=== PATIENT | male | born 1945 | race Caucasian/White ===

== ENCOUNTER → 2016-10-26 | Outpatient (CLI) | payer OTHER ==
[~2016-10-26] MED LIST: ASPCH81X PO; ATOR-24 PO; DEXL60CA4 PO; FISHOIL PO; LISI40TA PO; NAPR1TAB9 PO; OMEG10007 PO
[2016-10-26 14:50] LABS: BASO % 0.3 %; BASO ABS # 0.02 K/uL (0-0.2); COMPLETE YES; HEMATOCRIT 41.9 % (42-52); IG% 0.3 %; LYMPH % 39.4 %; LYMPH ABS # 2.35 K/uL (1.2-3.4); MEAN CELL VOLUME 82.2 fL (80-100); MEAN CORPUSCULAR HEMOGLOBIN 27.6 pg (25-34); MEAN CORPUSCULAR HGB CONC 33.7 g/dl (32-36); MONO % 8.9 %; NEUT % 47.1 %; PLATELET COUNT 202 K/uL (130-400); WHITE BLOOD COUNT 5.97 K/uL (4.8-10.8)
[2016-10-26 16:01] LABS: BLOOD UREA NITROGEN 17 mg/dl (7-18); BUN/CREATININE RATIO 17.7 (10-20); CALCIUM 8.8 mg/dl (8.5-10.1); CARBON DIOXIDE 25 mmol/L (21-32); CHLORIDE 103 mmol/L (98-107); CREATININE 0.95 mg/dl (0.60-1.40); GLUCOSE 104 mg/dl (70-99); POTASSIUM 4.2 mmol/L (3.5-5.1); SODIUM 136 mmol/L (136-145)
[2016-10-26 16:08] LABS: ALB/GLOB RATIO 1.4 (0.9-2); ALKALINE PHOSPHATASE 107 U/L (45-117); ALT/SGPT 31 U/L (12-78); AST/SGOT 24 U/L (15-37); CHOLESTEROL 110 mg/dl (0-200); CHOLESTEROL/HDL RATIO 3.3; HDL CHOLESTEROL 33 mg/dl; LDL CHOLESTEROL CALCULATED 54 mg/dl; TRIGLYCERIDES 115 mg/dl (0-150); VERY LOW DENSITY LIPOPROT CALC 23 mg/dl
== END | disposition home or self-care (01) ==
LOC: C.LABSPEC 13:48
PROVIDERS: ATTEND Family Medicine
DX: E78.2 Mixed hyperlipidemia (principal); K21.9 Gastro-esophageal reflux disease without esophagitis; I10 Essential (primary) hypertension

== ENCOUNTER 2016-11-22 11:02 | Emergency (ER) | payer OTHER ==
[~2016-11-22] VITALS: Ht 180.3 cm; Wt 89.9 kg
[~2016-11-22 11:02] MED LIST changes: -DEXL60CA4 PO; -OMEG10007 PO
[2016-11-22 11:11] VITALS: BP 139/89; PULSE 85; TEMP 36.6; O2SAT 98; Ht 180.3 cm; Wt 89.9 kg
[2016-11-22] MEDS ORDERED: PROPARACAINE HCL 0.5% OP SOLN 15 ML BTL OP STA (11:31)
[2016-11-22] MEDS ORDERED: OMEG10007 PO (11:33)
[2016-11-22] MEDS ORDERED: DEXL60CA4 PO (11:49)
--- NOTE | 2016-11-22 11:59 | EMERGENCY ROOM VISIT NOTE ---
ED Visit Note First contact with patient: 11:29 CHIEF COMPLAINT: Eye pain HISTORY OF PRESENT ILLNESS: This 71-year-old male patient presents to the emergency department ambulatory complaining of pain in the left eye which began yesterday. The patient states that he was riding in the car with the windows down and something hit his eye. There has been a constant moderate pain and irritation, redness and tearing in the eye since then. There is a mild blurring of vision at times and light bothers the eye. The vision has not been decreased over all. The patient does not wear contacts. The patient rates the pain as stinging and 5/10. The patient has had previous corneal abrasions to this eye. Tetanus shot is up to date. The patient has a history of cataracts and sees Dr. Flores. REVIEW OF SYSTEMS: A 6 system review of systems was completed with positives and pertinent negatives listed in the HPI. ALLERGIES: Azithromycin MEDICATIONS: See med list PMH: Cataracts, hypertension, hyperlipidemia SOCIAL HISTORY: The patient lives locally with his . Nonsmoker, denies alcohol use. PHYSICAL EXAM: Vital Signs: Reviewed Nurse's notes, vital signs stable. Visual acuity 20/20 left eye, 20/25 right eye. GENERAL: This is a 71-year-old male, in no acute distress, but who is uncomfortable from the eye problem. Well- developed well-nourished. EYES: The pupils are equal round and reactive to light and accommodation. EOMs are full and without tenderness. There is discharge of clear tears from the left eye which is mildly injected. There is no foreign body visible under the eyelid even after lid eversion. Funduscopic exam reveals no hemorrhages, papilledema, or other abnormalities. No foreign body was seen embedded in the cornea under slit lamp exam. The cornea was clear and no hyphema was seen. Fluorescein uptake was observed with ultraviolet light significant for a linear corneal abrasion over the lateral aspect of the left eye. EMERGENCY DEPARTMENT COURSE: I examined the patient. Alcaine 2 drops were placed in the patient's left eye. A slit lamp exam was performed as above. Ciloxan two drops was placed in the patient's left eye. Lid eversion was performed and no foreign body identified. I suspect the patient likely rubbed his eye, causing the linear corneal abrasion. He will follow up with Dr. Flores for a recheck. The patient verbalized understanding of my assessment and treatment plan and was discharged home in good condition. DIAGNOSIS: Corneal abrasion of the left eye Problem List Medical Problems: (1) Arthritis Status: Chronic (2) Back Surgery Status: Resolved (3) Benign hypertension Status: Chronic (4) Bradyarrhythmia Status: Resolved (5) Bradycardia Status: Resolved (6) Chemical conjunctivitis Status: Resolved (7) Chemical keratitis Status: Resolved (8) Dizziness Status: Resolved (9) Gastroesophageal reflux disease Status: Chronic (10) HTN (hypertension) Status: Resolved (11) Hyperglycemia Status: Chronic (12) Lumbar strain Status: Resolved (13) Right elbow pain Status: Resolved (14) Symptomatic bradycardia Status: Resolved Surgical Problems: (1) Cardiac Pacemaker In Situ Status: Chronic (2) Cataract Nos Status: Resolved (3) History of cholecystectomy Status: Resolved (4) History of lumbar fusion Status: Resolved Current/Historical Medications Scheduled Atorvastatin (Lipitor), 40 MG PO DAILY Dexlansoprazole (Dexilant), 60 MG PO QAM Fish Oil ([place]-3), 2 CAP PO DAILY Lisinopril (Zestril), 40 MG PO QAM Naproxen (Aleve), 2 TABS PO DAILY Allergies Coded Allergies: Azithromycin (Unverified Allergy, Intermediate, Rash, 11/22/16) Vital Signs Date Time Temp Pulse Resp B/P Pulse Ox O2 Delivery O2 Flow Rate FiO2 11/22/16 11:11 36.6 85 18 139/89 98 Room Air Departure Information Impression Primary Impression: Corneal abrasion, left Dispostion Home / Self-Care Condition GOOD Referrals Wilberto Kraft M.D. ([place]) (PCP) Mikey Flores MD Patient Instructions My [facility] Additional Instructions You have been treated in the Emergency Department today for your Corneal Abrasion. You have been prescribed Ciloxan eye drops. This is an antibiotic which will help to prevent an infection from developing in your affected eye. You should use 2 drops in the affected eye every 2 hours while awake for the first 2 days, then every 4 hours for the remaining 5 days. This is a total of a 7-day course for these antibiotic eye drops. For pain control, you can use the following [id number] medicines (if >12 yo): - Regular strength (325mg/tab) Tylenol (acetaminophen) 2 tabs every 4-6 hours as needed. Do not exceed 12 tablets in a 24 hour period. Avoid taking more than 4 grams (4000 mg) of Tylenol per day. This includes any other sources of acetaminophen you may take on a regular basis. - Regular strength (200 mg/tab) Advil (ibuprofen) 1-2 tabs every 4-6 hours as needed. Do not exceed a dose of 3200 mg per day. You should relax in a quiet, dark place for the rest of the day. You should wear sunglasses while outside for the next few days until your eyes are not as sensitive to the light. You should schedule a follow-up appointment in 2-3 days with your Primary Care Provider or established Eye Doctor ([employer]) for further evaluation and treatment of your Corneal Abrasion. Return to the Emergency Department if your current symptoms worsen despite treatment course outlined above, or if you develop any of the following symptoms : intractable pain, visual disturbances, loss of vision, increased redness, swelling, drainage, or if you develop a fever. Problem Qualifiers Primary Impression: Corneal abrasion, left Encounter type: initial encounter Qualified Codes: S05.02XA - Injury of conjunctiva and corneal abrasion without foreign body, left eye, initial encounter
[2016-11-22] MEDS ORDERED: CIPROFLOXACIN HCL 0.3% OP SOLN 2.5 ML BTL OP ONE (12:00)
== END 2016-11-22 12:19 | disposition home or self-care (01) ==
LOC: C.EDB 11:05 → C.EDD 12:19
DX: S05.02XA Injury of conjunctiva and corneal abrasion without foreign body, left eye, initial encounter (principal); X58.XXXA Exposure to other specified factors, initial encounter; H26.9 Unspecified cataract; I10 Essential (primary) hypertension; E78.5 Hyperlipidemia, unspecified; R73.9 Hyperglycemia, unspecified

== ENCOUNTER 2017-03-30 20:13 | Emergency (ER) | payer OTHER ==
[~2017-03-30] VITALS: Ht 182.9 cm; Wt 104.5 kg
[~2017-03-30 20:13] MED LIST changes: -ASPCH81X PO; +DEXL60CA4 PO; -FISHOIL PO; +OMEG10007 PO
[2017-03-30 20:24] VITALS: TEMP 36.6; Ht 182.9 cm; Wt 104.5 kg
[2017-03-30] MEDS ORDERED: PROPARACAINE HCL 0.5% OP SOLN 15 ML BTL ONE (21:40)
[2017-03-30] MEDS ORDERED: CIPROFLOXACIN HCL 0.3% OP SOLN 2.5 ML BTL OP STA (21:52)
--- NOTE | 2017-03-30 21:59 | EMERGENCY ROOM VISIT NOTE ---
ED Visit Note First contact with patient: 21:39 The patient was seen and examined with Anitha Anguiano PA-C. I agree with the history, physical and findings. Please see the note for disposition and details.
[2017-03-30 22:01] VITALS: BP 154/76; PULSE 72; O2SAT 100
--- NOTE | 2017-03-31 02:32 | EMERGENCY ROOM VISIT NOTE ---
ED Visit Note First contact with patient: 21:39 CHIEF COMPLAINT: Foreign body of the eye HISTORY OF PRESENT ILLNESS: This 72 yo patient presents to the emergency department with complaining of pain and foreign body sensation in the left eye. Patient is working on the car and thinks he got a piece of metal in his eye. There has been a constant moderate pain and irritation, redness and tearing in the eye. The vision has not been decreased over all. The patient does not wear contacts. The patient rates the pain as 4/10. The patient has had previous injuries to this eye. Tetanus shot is up to date. REVIEW OF SYSTEMS: A 6 system review of systems was completed with positives and pertinent negatives listed in the HPI. ALLERGIES: Zithromax MEDICATIONS: Reviewed PMH: Medical Problems: (1) Arthritis Status: Chronic (2) Back Surgery Status: Resolved (3) Benign hypertension Status: Chronic (4) Bradyarrhythmia Status: Resolved (5) Bradycardia Status: Resolved (6) Chemical conjunctivitis Status: Resolved (7) Chemical keratitis Status: Resolved (8) Dizziness Status: Resolved (9) Gastroesophageal reflux disease Status: Chronic (10) HTN (hypertension) Status: Resolved (11) Hyperglycemia Status: Chronic (12) Lumbar strain Status: Resolved (13) Right elbow pain Status: Resolved (14) Symptomatic bradycardia Status: Resolved Surgical Problems: (1) Cardiac Pacemaker In Situ Status: Chronic (2) Cataract Nos Status: Resolved (3) History of cholecystectomy Status: Resolved (4) History of lumbar fusion Status: Resolved SOCIAL HISTORY: No drug use PHYSICAL EXAM: Vital Signs: Reviewed Nurse's notes, vital signs stable. Visual acuity reviewed from nursing. GENERAL: This is a pleasant male, in no acute distress, but who is uncomfortable from the eye problem. Well-developed well- nourished. EYES: The pupils are equal round and reactive to light and accommodation. EOMs are full and without tenderness. There is clear discharge from the left eye which is injected. There is a piece of metal visible on the cornea. There is no foreign body visible under the eyelid after lid eversion. Small metallic foreign body was seen embedded in the cornea under slit lamp exam. The cornea was clear and no hyphema was seen. Fluorescein uptake was observed with ultraviolet light significant for a corneal abrasion only around the previous location of the foreign body. EMERGENCY DEPARTMENT COURSE: I examined the patient. Alcaine 2 drops were placed in the patient's left eye. A slit lamp exam was performed as above. The small metallic foreign body was removed using a Q-tip. There was no rust ring. Ciloxan two drops was placed in the patient's left eye. The patient was discharged home in good condition. Patient was advised to follow-up with his parasitology teacher in a day or 2 or here in the ER sooner for eye pain, vision films, worsening signs or symptoms or as needed. DIAGNOSIS: Foreign body with subsequent corneal abrasion of the left eye DISCHARGE INSTRUCTIONS AND TREATMENT: As below Problem List Medical Problems: (1) Arthritis Status: Chronic (2) Back Surgery Status: Resolved (3) Benign hypertension Status: Chronic (4) Bradyarrhythmia Status: Resolved (5) Bradycardia Status: Resolved (6) Chemical conjunctivitis Status: Resolved (7) Chemical keratitis Status: Resolved (8) Dizziness Status: Resolved (9) Gastroesophageal reflux disease Status: Chronic (10) HTN (hypertension) Status: Resolved (11) Hyperglycemia Status: Chronic (12) Lumbar strain Status: Resolved (13) Right elbow pain Status: Resolved (14) Symptomatic bradycardia Status: Resolved Surgical Problems: (1) Cardiac Pacemaker In Situ Status: Chronic (2) Cataract Nos Status: Resolved (3) History of cholecystectomy Status: Resolved (4) History of lumbar fusion Status: Resolved Current/Historical Medications Scheduled Atorvastatin (Lipitor), 40 MG PO DAILY Dexlansoprazole (Dexilant), 60 MG PO QAM Fish Oil ([place]-3), 2 CAP PO DAILY Lisinopril (Zestril), 40 MG PO QAM Naproxen (Aleve), 2 TABS PO DAILY Allergies Coded Allergies: Azithromycin (Unverified Allergy, Intermediate, Rash, 03/30/17) Vital Signs Date Time Temp Pulse Resp B/P (MAP) Pulse Ox O2 Delivery O2 Flow Rate FiO2 03/30/17 22:01 72 16 154/76 100 03/30/17 20:24 36.6 76 20 134/76 94 Room Air Medications Administered Medications (Trade) Dose Ordered Sig/Hazel Route Start Time Stop Time Status Last Admin Dose Admin Ciprofloxacin HCl (Ciprofloxacin 0.3% Op Soln) 2 drops NOW STAT OP 03/30/17 21:52 03/30/17 21:54 DC 03/30/17 22:00 2 DROPS Departure Information Impression Primary Impression: Foreign body in cornea, left eye, initial encounter Dispostion Home / Self-Care Condition GOOD Forms WORK / SCHOOL INSTRUCTIONS, HOME CARE DOCUMENTATION FORM, IMPORTANT VISIT INFORMATION Patient Instructions My [facility], ED Foreign Body Cornea Additional Instructions Use Ciloxan two drops in left eye every two hours while awake for two days; then two drops every four hours while awake for 5 days. Use Ibuprofen 600 mg or Tylenol 1000 mg every 6 hours as needed for pain ( Maximum 3000 mg Tylenol in 24 hr period). If you wear contacts, no contacts for 1 week. Follow up with your parasitology teacher in 1-2 days. Call for appointment. Return to the ED for increasing pain or changes in vision.
== END 2017-03-30 22:02 | disposition home or self-care (01) ==
LOC: C.EDB 20:15 → C.EDD 22:02
DX: T15.02XA Foreign body in cornea, left eye, initial encounter (principal); W45.8XXA Other foreign body or object entering through skin, initial encounter; M19.90 Unspecified osteoarthritis, unspecified site; I10 Essential (primary) hypertension; K21.9 Gastro-esophageal reflux disease without esophagitis; R73.9 Hyperglycemia, unspecified; Z95.0 Presence of cardiac pacemaker

== ENCOUNTER → 2017-11-07 | Outpatient (CLI) | payer OTHER ==
[2017-11-07 13:12] LABS: BASO % 0.3 %; BASO ABS # 0.02 K/uL (0-0.2); EOS % 4.3 %; EOS ABS # 0.25 K/uL (0-0.5); HEMATOCRIT 43.8 % (42-52); HEMOGLOBIN 14.7 g/dL (14.0-18.0); IG# 0.01 K/uL (0.00-0.02); LYMPH % 41.3 %; LYMPH ABS # 2.38 K/uL (1.2-3.4); MEAN CELL VOLUME 82.3 fL (80-100); MEAN CORPUSCULAR HEMOGLOBIN 27.6 pg (25-34); MEAN CORPUSCULAR HGB CONC 33.6 g/dl (32-36); MEAN PLATELET VOLUME 10.7 fL (7.4-10.4); MONO % 8.3 %; MONO ABS # 0.48 K/uL (0.11-0.59); NEUT % 45.6 %; NEUT ABS # 2.62 K/uL (1.4-6.5); PLATELET COUNT 216 K/uL (130-400); RED CELL DISTRIBUTION WIDTH CV 13.7 % (11.5-14.5); WHITE BLOOD COUNT 5.76 K/uL (4.8-10.8)
[2017-11-07 14:06] LABS: ALBUMIN 4.2 gm/dl (3.4-5.0); ALT/SGPT 39 U/L (12-78); AST/SGOT 25 U/L (15-37); BLOOD UREA NITROGEN 14 mg/dl (7-18); CALCIUM 8.8 mg/dl (8.5-10.1); CARBON DIOXIDE 26 mmol/L (21-32); CHOLESTEROL 108 mg/dl (0-200); GLUCOSE 114 mg/dl (70-99); POTASSIUM 4.3 mmol/L (3.5-5.1); SODIUM 137 mmol/L (136-145); TOTAL PROTEIN 7.3 gm/dl (6.4-8.2)
[2017-11-07 14:12] LABS: ALKALINE PHOSPHATASE 116 U/L (45-117); LDL CHOLESTEROL CALCULATED 56 mg/dl
== END | disposition home or self-care (01) ==
LOC: C.LABSPEC 12:58
PROVIDERS: ATTEND Family Medicine
DX: I10 Essential (primary) hypertension (principal); E78.2 Mixed hyperlipidemia; K21.9 Gastro-esophageal reflux disease without esophagitis; Z12.5 Encounter for screening for malignant neoplasm of prostate

== ENCOUNTER 2022-07-27 08:07 | Observation (INO) ==
--- NOTE | 2022-06-14 14:58 | PAT Medication Instructions ---
Medication Instructions Date of Service June 14, 2022 Home Medications atorvastatin 40 mg tablet 40 mg PO HS dexlansoprazole 60 mg capsule,biphase delayed release 60 mg PO QAM lisinopril 40 mg tablet 40 mg PO QAM naproxen sodium 220 mg tablet 440 mg PO QAM ASK your surgeon for instructions naproxen sodium 220 mg tablet 440 mg PO QAM DO NOT take the morning of surgery lisinopril 40 mg tablet 40 mg PO QAM Take morning of surgery With a small sip of water, OTHERWISE NOTHING TO EAT OR DRINK AFTER MIDNIGHT: dexlansoprazole 60 mg capsule,biphase delayed release 60 mg PO QAM Take evening before surgery atorvastatin 40 mg tablet 40 mg PO HS Other Notes If you have any questions please call us at [phone] or [phone] or [phone] or [phone]
--- NOTE | 2022-06-18 12:49 | Anesthesiology Consultation ---
Date of Service June 18, 2022 Assessment & Plan (1) Encounter for pre-operative examination: - will attempt to obtain most recent pacer report. PAT testing to be faxed to PCP. - A1c 6.7%, pt not on medication at this time. PCP and surgeon notified. Check BSG am DOS. - Medtronic pacemaker. - EP 05/28/22 [place]: "...Sick sinus syndrome: No additional episodes of dizziness or lightheadedness. Normally functioning dual-chamber permanent pacemaker with approximately 50% atrial pacing. Normal longevity. Paroxysmal atrial tachycardia: He appears to have had this diagnosis in the past. He has not been aware of any palpitations. episodes themselves are very brief. No atrial fibrillation..." Outpatient joint assessment: Patient is currently scheduled for inpatient pathway. If re-evaluated pending system levels during current pandemic/surgeon requests outpatient pathway, patient is not recommended candidate for outpatient joint program from anesthesia standpoint. Chart Review Chart Review: Pending: Refer to Additional Notes / Consult section and Patient seen in Pre Admission Testing Teaching & Discussion Pre-Anesthesia Teaching/Discussion Notes: Instructed NPO after midnight before surgery, except medications with 15 cc of water. Medication instructions provided according to the PAT guidelines. History Surgery Operation Date: 07/27/22 08:25 Proposed Procedures p Right Total Knee Arthroplasty - Danilo Gamboa DO Height/Weight Height: 5 ft 11.5 in Weight: 95.254 kg Allergies Allergy/AdvReac Type Severity Reaction Status Date / Time azithromycin Allergy Rash Verified 06/14/22 08:57 Medications Home Medications Medication Instructions Recorded Confirmed Last Taken atorvastatin 40 mg tablet 40 mg PO HS 04/24/19 06/14/22 Unknown dexlansoprazole 60 mg 60 mg PO QAM 04/24/19 06/14/22 Unknown capsule,biphase delayed release lisinopril 40 mg tablet 40 mg PO QAM 04/24/19 06/14/22 Unknown naproxen sodium 220 mg tablet 440 mg PO QAM 04/24/19 06/14/22 Unknown Past Medical History Medical History (Updated 06/21/22 @ 08:54 by Beverly Chavez PA-C) Cardiac pacemaker 12/24/14, [place], Medtronic, f/u corky joseph Elevated hemoglobin A1c 6.7% on 06/2022 pre-op testing GERD (gastroesophageal reflux disease) controlled, stable per pt History of COVID-19 04/2022, test at PCP office, not hosp; fatigue, body aches>resolved. HTN (hypertension) controlled, stable per pt Hx of fracture "multiple fractures over the years, think I had some surgeries for them" Hyperlipidemia PAT (paroxysmal atrial tachycardia) Sinus node dysfunction Sleep apnea s/p UPPP Symptomatic bradycardia Patient denies h/o stroke, seizures, heart attack, heart failure, DM, blood clots or blood transfusions. Exercise / Class Metabolic Activity II 4-5 Yardwork/Stairs/Walk up hill (denies CP or SOB with 1 FOS) Past Surgical History Surgical History History of back surgery History of esophagogastroduodenoscopy (EGD) History of nasal surgery History of permanent cardiac pacemaker placement History of uvulopalatopharyngoplasty 2003 Hx laparoscopic cholecystectomy Hx of cataract extraction bilat. Hx of colonoscopy Hx of foot surgery for a fx. "long time ago" Hx of inguinal hernia repair Hx of sinus surgery Past Anesthesia History No Hx of Anesthesia Complications and No Family Hx of Anesthesia Complications History of PONV No Hx of PONV and No Hx of Motion Sickness Social History Smoking Status: Never smoker Do You Dip or Chew Tobacco: No Hx Alcohol Use: Yes (hx-none for 40-50 years) Hx Substance Use: Yes substance use type: former substance user, marijuana, crack/cocaine and heroin Last Used Substance Other:: "many years ago" Review of Systems Patient denies chest pain, shortness of breath, dyspnea on exertion, fever, chills, cough, wheezing, or palpitations. Physical Exam Vital Signs Vitals BP 116/76 P 65 TEMP 97.6 SP02 96% on RA RESP 17 Physical Full cervical extension range of motion without pain TMD 3.5 finger breadths Mallampati Score s/p UPPP Dentition: intact, removable upper plate, multiple caps/crowns; denies chipped or loose teeth Lungs: normal respiratory effort. Clear throughout to auscultation, no adventitious breath sounds Cardiac: regular rate and rhythm, no murmurs noted Carotid arteries: negative bruit bilat Lab Results Anesthesia Preop Results Results Anesthesia Widget: WBC 7.19 K/ul (4.8-10.8) 06/18/22 Hgb 14.1 g/dl (14.0-18.0) 06/18/22 Hct 42.8 % (40.1-51.0) 06/18/22 Plt 221 K/uL (130-400) 06/18/22 Na 135 mmol/L (136-145) L 06/18/22 K 5.0 mmol/L (3.5-5.1) 06/18/22 Cl 102 mmol/L (98-107) 06/18/22 CO2 29 mmol/L (21-32) 06/18/22 BUN 18 mg/dl (6-23) 06/18/22 Creat 0.92 mg/dl (0.6-1.4) 06/18/22 Glucose Level 101 mg/dl (70-99(Fasting)) H 06/18/22 PT 10.9 Seconds (9.0-12.0) 06/18/22 PTT 28.3 Seconds (21.0-31.0) 06/18/22 INR 1.0 (0.9-1.1) 06/18/22 HA1c 6.7 % (4.5-5.6) H 06/18/22 Urine Color Yellow 06/18/22 Urine Appearance Cloudy (Clear) A 06/18/22 Urine pH 7.5 (4.5-7.5) 06/18/22 Urine Specific [place] 1.015 (1.000-1.030) 06/18/22 Urine Protein Negative (Negative) 06/18/22 Urine Glucose (UA) Negative (Negative) 06/18/22 Urine Ketones Negative (Negative) 06/18/22 Urine Blood 1+ (Negative) H 06/18/22 Urine Nitrite Negative (Negative) 06/18/22 Urine Bilirubin Negative (Negative) 06/18/22 Urine Urobilinogen Negative (Negative) 06/18/22 Urine Leukocyte Esterase Negative (Negative) 06/18/22 Urine WBC (Auto) 1-5 /hpf (0-5) 06/18/22 Urine RBC (Auto) 5-10 /hpf (0-4) H 06/18/22 Urine Hyaline Casts (Auto) 1-5 /lpf (0-5) 06/18/22 Urine Epithelial Cells (Auto) 5-10 /lpf (0-5) H 06/18/22 Urine Bacteria (Auto) Negative (Negative) 06/18/22 Blood Type O Positive 06/18/22 Antibody Screen NEGATIVE 06/18/22 Testing Laboratory Results Surgeon's office made aware of elevated A1c. Electrocardiogram Date: 06/18/22 Atrial paced rhythm, rate 72 bpm Chest X-Ray Date: 06/18/22 Dual lead pacemaker is seen. Calcified aortic knob is seen. The lungs are clear. No evidence of pleural effusion or pneumothorax. IMPRESSION: No acute chest disease. COVID-19 Risk Screen Screening Information COVID-19 Screen Date: 06/18/22 Exposure 21 Days Family/Household +COVID Last 21 Days: No Exposure 10 Days Any COVID Exposure Last 10 Days: No Symptoms Last 10 Days Experienced COVID Sx Last 10 Days: No + COVID 0-90 Days COVID + in Last 0-90 Days: Yes + COVID Test 0-10 Day: No + COVID Test 11-90 Day: Yes Date/Place of COVID-19 Test: positive PCR 04/12/22, symptoms resolved
--- NOTE | 2022-07-13 11:50 | History & Physical Report ---
Date of Service July 13, 2022 date of surgery: 07/27/22 Procedure: Right Total Knee Arthroplasty Surgeon: Danilo Gambao Assessment & Plan (1) Arthritis of right knee: Plan: Discussed further treatment options, at this point time would like to proceed with a right total knee replacement. Plan to be overnight stay with discharge the following day with home health physical therapy. Will place on aspirin 81 mg twice a day for 1 month postop. We will need medical clearance from his PCP as well as cardiac clearance. At this point time otherwise has no other questions or concerns and would like to proceed with surgical invention The risks and benefits have been discussed including, but not limited to, risk of infection, nerve injury, stiffness, loss of motion, failure to improve, etc. Reasonable outcomes and options of treatment were discussed. An explanation of appropriate alternatives to the procedure that may be advantageous were discussed and their risks and benefits, as well as the risks and benefits of not proceeding with treatment. I offered to answer any additional inquiries concerning the treatment involved. All the patient's questions were answered. The patient is agreeable, understanding of the treatment plan and alternatives, and wishes to proceed with the treatment plan. History of Present Illness Chief Complaint: right knee pain Primary Care Provider: NO PCP Jacques is a pleasant 77-year-old male who presents for preop evaluation prior to his right total knee replacement scheduled for 07/27/2022 at [facility]. He states he has been having pain in his knee for many years now which is gradually worsened and is now affecting his daily activities. He did have prior surgery on his knee approximately 30 or 40 years ago. He does take oral anti-inflammatories and Tylenol as needed for pain. He rates his current pain as a 7 out of 10. After discussing further options he like to proceed with a right total knee replacement Allergies Allergy/AdvReac Type Severity Reaction Status Date / Time azithromycin Allergy Rash Verified 06/14/22 08:57 Home Medications Medication Instructions Recorded Confirmed Type atorvastatin 40 mg tablet 40 mg PO HS 04/24/19 06/14/22 History dexlansoprazole 60 mg 60 mg PO QAM 04/24/19 06/14/22 History capsule,biphase delayed release lisinopril 40 mg tablet 40 mg PO QAM 04/24/19 06/14/22 History naproxen sodium 220 mg tablet 440 mg PO QAM 04/24/19 06/14/22 History Past Med/Surg History Medical History Cardiac pacemaker 12/24/14, [place], [employer], f/u dr smith, corky Elevated hemoglobin A1c 6.7% on 06/2022 pre-op testing GERD (gastroesophageal reflux disease) controlled, stable per pt History of COVID-19 04/2022, test at PCP office, not hosp; fatigue, body aches>resolved. HTN (hypertension) controlled, stable per pt Hx of fracture "multiple fractures over the years, think I had some surgeries for them" Hyperlipidemia PAT (paroxysmal atrial tachycardia) Sinus node dysfunction Sleep apnea s/p UPPP Symptomatic bradycardia Surgical History History of back surgery History of esophagogastroduodenoscopy (EGD) History of nasal surgery History of permanent cardiac pacemaker placement History of uvulopalatopharyngoplasty 2003 Hx laparoscopic cholecystectomy Hx of cataract extraction bilat. Hx of colonoscopy Hx of foot surgery for a fx. "long time ago" Hx of inguinal hernia repair Hx of sinus surgery Social History Smoking Status: Never smoker Second Hand Exposure: No; Hx Alcohol Use: Yes (hx-none for 40-50 years) Hx Substance Use: Yes Last Used Substance Other:: "many years ago" Preferred Language: Maori Communication Ability: Effective Drive Away Driver Required: No Beliefs That Will Affect Care: None marital status: Current Living Situation: Spouse current occupational status: retired Feels Safe at Home: Yes Assistive Devices: Denture - Upper and Glasses Review of Systems Review of Systems: All systems reviewed & are unremarkable except as noted in HPI & below Constitutional: no fever, no chills and no sweats Respiratory: no cough and no dyspnea Cardiovascular: no chest pain, no dyspnea and no orthopnea Gastrointestinal: no abdominal pain, no nausea and no vomiting Musculoskeletal: as per Subjective / HPI Physical Exam Physical Exam: HT: 5ft 11.5in WT: 102.4kg Constitutional: WD/WN, vitals as above no acute distress Respiratory: normal respiratory effort, lungs clear to auscultation no respiratory distress, no labored breathing and does not use accessory muscles Cardiovascular: RRR, no murmur, no edema Gastrointestinal (Abdomen): normal bowel sounds, soft, nontender, no hepatosplenomegaly Musculoskeletal: Knee: + knee abnormal to inspection (RIGHT KNEE: ), + effusion (+1 effusion), + surgical incision (well healed portals), + limited ROM of knee (ROM 0/3/110), + knee ROM with crepitation, + joint line tenderness (medial joint line) and + Yovany's sign positive; no deformity, no skin erythema, no ecchymosis, no valgus laxity, no varus laxity, anterior drawer test negative, Favio's sign negative and pivot shift test negative Results & Data Results & Data ([facility]) Diagnostic Findings Right Knee X-ray: Right knee series showing advanced degenerative changes to the right knee, narrowing of the medial compartment and patello-femoral joint with patellar spurring noted, findings showing joint space narrowing of the medial compartment and patello-femoral joint, osteophyte formation and subchondral sclerosis noted. overall varus alignment. no acute bony pathology noted.
[~2022-07-27 08:07] MED LIST changes: +ACETAMINOPHEN 500 MG TAB PO SCH; -ATOR-24 PO; +BUPIVACAINE 0.5 % 5 MG/1 ML PF 10ML VIAL ONE; +CeleBREX 200 MG CAP PO SCH; -DEXL60CA4 PO; +EPINEPHrine INJ 1 MG/ML AMP ONE; +FAMOTIDINE 20 MG TAB PO SCH; +GABAPENTIN 300 MG CAP PO SCH; -LISI40TA PO; +LR 500ML BOLUS, THEN 15ML/HR IV SCH; +METOCLOPRAMIDE HCL 10 MG TABLET PO SCH; -NAPR1TAB9 PO; -OMEG10007 PO; +ROPIVACAINE 0.5% 5 MG/ML 30 ML VIAL ONE; +ROPIVACAINE 0.5% HCL/PF 150 MG, BUPIVACAINE 0.75% MPF 20 ML, EPINEPHrine 30MG/30ML (OR ... INFIL SCH; +ceFAZolin 2000MG 2,000 MG/15 ML SYR IV SCH; +dexAMETHasone 4 MG TAB PO SCH
--- NOTE | 2022-07-27 08:41 | History & Physical Bridge Note ---
Date of Service July 27, 2022 History & Physical Bridge Note I have examined the patient, reviewed the History & Physical and in the interval since the performance of the History & Physical I have noted the following changes of clinical significance: no changes noted
[2022-07-27] MEDS ORDERED: TRANEXAMIC ACID / 0.7% NACL 1,000 MG/100 ML BAG IV ONE ×2 (08:42)
[2022-07-27] MEDS ORDERED: MIDAZOLAM HCL 1 MG/ML 2ML VIAL ONE ×2 (09:16→11:04)
[2022-07-27] MEDS ORDERED: PROPOFOL IV EMULSION 10 MG/ML 20 ML VIAL IV ONE ×2 (09:17→12:34)
[2022-07-27] MEDS ORDERED: LIDOCAINE 2% MPF LOCAL 5 ML VIAL INFIL ONE (09:17)
[2022-07-27] MEDS ORDERED: ONDANSETRON INJ 2 MG/ML 2 ML VIAL ONE (09:17)
[2022-07-27] MEDS ORDERED: fentaNYL citrate 100 MCG/2 ML VIAL ONE (09:17)
[2022-07-27] MEDS ORDERED: ORTHO JOINT ANESTHETIC ONE (10:43)
[2022-07-27] MEDS ORDERED: ePHEDrine sulfate 50 MG/ML SYR ONE (11:34)
--- NOTE | 2022-07-27 12:41 | Operative Report ---
Post Operative Report Pre & Post Diagnosis Operation Date: 07/27/22 10:45 Pre-Op Diagnosis: Arthritis of right knee Post-Op Diagnosis: Arthritis of right knee I identified the patient and participated in the time-out.: Yes Procedure Operation Date: 07/27/22 10:45 Actual Procedures p Right Total Knee Arthroplasty(Right) utilizing [employer] journey 2 long block total knee arthroplasty size femur 7 tibia 6 polyeleven patella 32 amy- Danilo Gamboa DO Surgeon Danilo Gamboa DO Paper Stripper Srinivasan BACA Estimated Blood Loss 5 Findings Consistent with Post-Op Diagnosis Patient presents with severe end-stage tricompartmental DJD right knee no response to conservative management eburnated [id number] varus alignment subchondral sclerosis marginal osteophytes large effusion Specimens Bone and cartilage Drains Medium bore Hemovac Anesthesia Type MAC Spinal Regional Complications none Disposition Accompanied Patient To Recovery: No Disposition: Recovery Room Indications Patient presents with severe end-stage DJD right knee after failed attempted conservative management clinic physical therapy anti-inflammatories relative rest activity modification corticosteroid injection viscosupplementation above intraoperative findings were noted Description of Procedure After proper prepping and draping of the Right lower extremity anterior midline incision was made over the region of the extensor extensor mechanism after meticulous hemostasis was obtained and maintained in subcutaneous tissues a medial parapatellar incision was made The patella was subluxed lateralward the medial lateral gutter were cleaned from any hypertrophic synovitis and scar tissue of the distal femoral block was placed and the distal femoral osteotomy cut was made subsequently the chamfers anterior and posterior osteotomy cuts were made utilizing the 4-in-1 block the tibia was subsequently subluxed anteriorward medial and ateral meniscal remnants were excised in their entirety remnants of the anterior and posterior cruciate ligaments were excised in their entirety excellent exposure of the proximal tibia was obtained the tibial osteotomy guide was placed on the proximal tibial osteotomy cut was made once again the knee was irrigated with copious amounts of sterile saline solution the patella was subsequently everted lateralward thickened scar tissue around the patella was removed the patella was subsequently cut utilizing a freehand technique and was drilled prepared for final preparation and placement of patella socially flexion-extension gaps were checked and the equal and symmetric trials were placed to the appropriate femoral and tibial trials with poly-spacer being placed for equal flexion and extension gaps and full range of motion including extension to 0 and flexion to 140 the trial components after having been taken to recovery range of motion was subsequently removed meticulous hemostasis was obtained and maintained subsequently a knee block injection of joint cocktail including ropivacaine 0.5% 150 mg. Bupivacaine 0.5% epinephrine 1-200,030 mL's toradol 30 mg dexamethasone 4 mg ketamine 10 mg clonidine 100 micrograms normal saline solution 30 mg was infiltrated into the soft tissues of the posterior knee medial lateral gutters and periosteal synovium special attention was paid to protect neurovascular structures at all times subsequently trial components having been removed the knee was irrigated with sterile saline solution. debris was removed the proximal tibia was subsequently prepared and was made ready for the placement of the tibial component tibial component was also cemented and tamped into position the femoral component was subsequently placed and cemented in the position the patellar component was subsequently cemented in position because hemostasis once again obtained and maintained wound having been thoroughly irrigated with debridement and debridement lavage was performed as well as a medial parapatellar incision closed with #1 Vicryl in interrupted fashion subcutaneous was closed with #2 Vicryl skin was closed with skin clips. PA-C was necessary for prepping and drapping as well as wound closure of deep fascia Sub cutaneous tissue and skin and was necessary for the case. A sterile compressive dressing was placed patient was taken to recovery in stable condition of report dictated by Cooper I attest to the content of the Intraoperative Record and any orders documented therein. Any exceptions are noted below.Due to the complex nature of the procedure, the entire surgery was performed with the operational assistance of [PAC Name]. The registered nurse first assistant, under direct supervision, was involved in the actual performance of all aspects of the surgical procedure including hemostasis, tissue retraction and incision, instrument management, patient positioning, and wound closure. I attest to the content of the Intraoperative Record and any orders documented therein. Any exceptions are noted below.
--- NOTE | 2022-07-27 14:55 | Anesthesiology Progress Note ---
Date of Service July 27, 2022 Anesthesia Post Procedure Vital Signs Vital Signs: Temp Pulse Pulse Resp BP Pulse Ox O2 Del Method 07/27/22 13:50 92 H 18 129/78 96 Oxymask 07/27/22 13:40 91 H 17 158/66 H 96 Oxymask 07/27/22 14:40 87 14 153/83 H 92 Nasal Cannula 07/27/22 14:30 86 16 143/83 H 93 Nasal Cannula 07/27/22 14:20 83 14 144/81 H 93 Nasal Cannula 07/27/22 14:10 82 14 142/86 H 93 Nasal Cannula 07/27/22 14:00 89 18 155/77 H 93 Nasal Cannula 07/27/22 13:30 94 H 16 126/83 98 Oxymask 07/27/22 13:26 37.2 C 103 H 15 130/77 96 Oxymask 07/27/22 08:48 36.5 C 64 20 157/88 H 94 Room Air O2 Flow Rate 07/27/22 13:50 2 07/27/22 13:40 3 07/27/22 14:40 2 07/27/22 14:30 2 07/27/22 14:20 2 07/27/22 14:10 2 07/27/22 14:00 2 07/27/22 13:30 6 07/27/22 13:26 6 07/27/22 08:48 Transfer of Care Handoff Completed per policy Notes Mental Status: alert / awake / arousable and participated in evaluation Nausea / Vomiting: adequately controlled Pain: adequately controlled Airway Patency, RR, SpO2: stable & adequate BP & HR: stable & adequate Hydration State: stable & adequate Neuraxial Anesthesia: was administered and sensory block is resolving Anesthetic Complications: no major complications apparent and Pt Satisfied with anesthetic care
[2022-07-27] MEDS ORDERED: NALOXONE HCL 0.4 MG/1 ML VIAL/CARP IV PRN (15:33)
[2022-07-27] MEDS ORDERED: ONDANSETRON INJ 2 MG/ML 2 ML VIAL IV PRN (15:33)
[2022-07-27] MEDS ORDERED: SODIUM CHLORIDE 0.9% 1000ML 1,000 ML IV SCH (15:33)
[2022-07-27] MEDS ORDERED: HYDROmorphone INJ 0.5 MG/0.5 ML SYR IV PRN (15:33)
[2022-07-27] MEDS ORDERED: diphenhydrAMINE 50 MG/ML VIAL IV PRN (15:33)
[2022-07-27] MEDS ORDERED: MAGNESIUM HYDROXIDE SUSP 30 ML UDC PO PRN (15:33)
[2022-07-27] MEDS ORDERED: bisacodyL 10 MG SUPP PR PRN (15:33)
--- NOTE | 2022-07-27 15:39 | XRay Report ---
XR knee RT 1 or 2V routine CLINICAL HISTORY: Surgical Post Op TECHNIQUE: 2 views of the right knee were obtained. Comparison: None available at the time of this dictation. FINDINGS: Patient is status post total knee arthroplasty with expected postsurgical changes including soft tiss ue swelling and subcutaneous emphysema. No periarticular lucency or hardware fracture is seen. IMPRESSION: Expected postoperative appearance status post placement of total knee arthroplasty. ACT 112: Negative or not required by law. Electronically signed by: Trey Chaves M.D. 07/27/2022 3:38 PM
[2022-07-27] MEDS: ACETAMINOPHEN 500 MG TAB PO SCH ×2 (16:54→21:13)
--- NOTE | 2022-07-27 19:08 | Hospitalist Consultation ---
Date of Consultation July 27, 2022 Assessment & Plan (1) Arthritis of right knee: s/p right total knee arthroplasty 07/27/2022 VTE/Pain/bowel management per orthopedics (2) HTN (hypertension): Restart Lisinopril 40 mg p.o. daily tomorrow as long as blood pressure greater than 120 Ok to restart on discharge (3) GERD (gastroesophageal reflux disease): Switch Nexium to pantoprazole 40 mg p.o. daily (4) Hyperlipidemia: Continue atorvastatin 40 mg p.o. at bedtime Plan Thank you for the consult. No acute or unstable chronic conditions/medications of concern. We will sign off at this time but will chart check a.m. labs. Please contact the [facility] hospitalist on-call for any questions or concerns. History of Present Illness Reason for Consultation: postop management Attending Physician: Danilo Gamboa DO History of Present Illness Jacques Nelson is a 77 year old male POD#0 right total knee arthroplasty. Estimated blood loss 5 mL. No complications noted in operation report. The patient denies any concerns or questions at this time. Allergies Allergy/AdvReac Type Severity Reaction Status Date / Time azithromycin Allergy Mild Rash Verified 07/27/22 08:38 Home Medications Medication Instructions Recorded Confirmed Type atorvastatin 40 mg tablet 40 mg PO HS 04/24/19 07/27/22 History lisinopril 40 mg tablet 40 mg PO QAM 04/24/19 07/27/22 History naproxen sodium 220 mg tablet 440 mg PO QAM 04/24/19 07/27/22 History esomeprazole magnesium 40 mg 40 mg PO DAILY 07/16/22 07/27/22 History capsule,delayed release (Nexium) Patient History Medical History (Updated 07/28/22 @ 01:09 by Rajeev Jeffrey MD) Cardiac pac[place] 12/[place], [place], [employer], f/u corky joseph Elevated hemoglobin A1c 6.7% on 06/2022 pre-op testing GERD (gastroesophageal reflux disease) controlled, stable per pt History of COVID-19 04/2022, test at PCP office, not hosp; fatigue, body aches>resolved. HTN (hypertension) controlled, stable per pt Hx of fracture "multiple fractures over the years, think I had some surgeries for them" Hyperlipidemia PAT (paroxysmal atrial tachycardia) Sinus node dysfunction Sleep apnea s/p UPPP Symptomatic bradycardia Surgical History History of back surgery History of esophagogastroduodenoscopy (EGD) History of nasal surgery History of permanent cardiac pacemaker placement History of uvulopalatopharyngoplasty 2003 Hx laparoscopic cholecystectomy Hx of cataract extraction bilat. Hx of colonoscopy Hx of foot surgery for a fx. "long time ago" Hx of inguinal hernia repair Hx of sinus surgery Social History Smoking Status: Never smoker Second Hand Exposure: No; Do You Dip or Chew Tobacco: No; Tobacco Cessation Education Requested by Patient: No Hx Alcohol Use: Yes (hx-none for 40-50 years) Hx Substance Use: Yes Last Used Substance Other:: "many years ago" Preferred Language: Wolof Communication Ability: Effective Oracle Database Consultant Required: No Beliefs That Will Affect Care: None marital status: Current Living Situation: Spouse current occupational status: retired Other Information That Helps Us Care for You: No Feels Safe at Home: Yes Safety Concerns: Feels Safe At This Time Assistive Devices: Denture - Upper and Glasses Assistive Devices Comment: reading glasses Review of Systems Review of Systems: All systems reviewed & are unremarkable except as noted in HPI & below Physical Exam Constitutional: WD/WN, vitals as above Respiratory: normal respiratory effort, lungs clear to auscultation Cardiovascular: Rate/Rhythm: regular rate and regular rhythm Heart Sounds: + murmur (apical systolic 1/6) Extremities: normal capillary refill; no calf tenderness and no pedal edema Gastrointestinal (Abdomen): normal bowel sounds, soft, nontender, no hepatosplenomegaly Skin: no rashes, warm and dry Neurologic: moves all extremities and awake; not confused Results & Data Results & Data ([facility]) Vital Signs (Past 12 Hours) Vital Signs Temp Pulse Pulse Resp BP Pulse Ox O2 Del Method 07/27/22 18:12 Nasal Cannula 07/27/22 18:17 96 H 95 Nasal Cannula 07/27/22 18:12 36.8 C 101 H 16 125/67 93 Nasal Cannula 07/27/22 17:30 94 H 16 110/75 95 Nasal Cannula 07/27/22 16:30 94 H 15 128/97 95 Nasal Cannula 07/27/22 16:00 93 H 14 140/87 94 Nasal Cannula 07/27/22 15:30 85 15 134/96 93 Nasal Cannula 07/27/22 15:15 87 12 153/82 H 93 Nasal Cannula 07/27/22 15:00 92 H 12 127/99 97 Nasal Cannula 07/27/22 14:50 36.4 C L 86 12 139/89 97 Nasal Cannula 07/27/22 13:50 92 H 18 129/78 96 Oxymask 07/27/22 13:40 91 H 17 158/66 H 96 Oxymask 07/27/22 14:40 87 14 153/83 H 92 Nasal Cannula 07/27/22 14:30 86 16 143/83 H 93 Nasal Cannula 07/27/22 14:20 83 14 144/81 H 93 Nasal Cannula 07/27/22 14:10 82 14 142/86 H 93 Nasal Cannula 07/27/22 14:00 89 18 155/77 H 93 Nasal Cannula 07/27/22 13:30 94 H 16 126/83 98 Oxymask 07/27/22 13:26 37.2 C 103 H 15 130/77 96 Oxymask 07/27/22 08:48 36.5 C 64 20 157/88 H 94 Room Air O2 Flow Rate 07/27/22 18:12 2 07/27/22 18:17 2 07/27/22 18:12 2 07/27/22 17:30 2 07/27/22 16:30 2 07/27/22 16:00 2 07/27/22 15:30 2 07/27/22 15:15 2 07/27/22 15:00 2 07/27/22 14:50 2 07/27/22 13:50 2 07/27/22 13:40 3 07/27/22 14:40 2 07/27/22 14:30 2 07/27/22 14:20 2 07/27/22 14:10 2 07/27/22 14:00 2 07/27/22 13:30 6 07/27/22 13:26 6 07/27/22 08:48 PG Care Time/CCT Total # of Minutes Spent Total Time Spent with Patient: Total time spent is greater than 50% in coordination of care (as documented) at patient's floor/unit and/or counseling patient: Coding Level of Care Code INP/OBS CONSULT LVL 3, 45 MIN Diagnoses Arthritis of right knee M17.11 HTN (hypertension) I10 Hypertension type: essential hypertension GERD (gastroesophageal reflux disease) K21.9 Hyperlipidemia E78.5 (1) HTN (hypertension) Hypertension type: essential hypertension Qualified Code(s): I10 - Essential (primary) hypertension
[2022-07-27] MEDS ORDERED: ATORVASTATIN 40 MG TAB PO SCH (21:00)
[2022-07-27] MEDS ORDERED: SENNA 8.6 MG TAB PO SCH (21:00)
[2022-07-27] MEDS: ceFAZolin 2000MG 2,000 MG/15 ML SYR IV SCH (21:11)
[2022-07-27] MEDS: DOCUSATE SODIUM 100 MG CAP PO SCH (21:12)
[2022-07-27] MEDS: ASPIRIN 81 MG ECTAB PO SCH (21:12)
[2022-07-28] MEDS: oxyCODONE HCL IR 5 MG TAB (IMMEDIATE RELEASE) PO PRN ×3 (01:08→14:55)
[2022-07-28] MEDS: ceFAZolin 2000MG 2,000 MG/15 ML SYR IV SCH (03:03)
[2022-07-28 06:22] LABS: Hemoglobin 12.3 g/dl (14.0-18.0); Mean Corpuscular Hemoglobin 27.6 pg (25.0-34.0); Mean Corpuscular Hgb Conc 33.2 g/dL (32.0-36.0); Mean Corpuscular Volume 83.1 fL (80.0-100.0); Mean Platelet Volume 10.6 fL (9.4-12.4); Platelet Count 198 K/uL (130-400); RDW Coefficient of Variation 13.1 % (11.5-14.5); RDW Standard Deviation 39.5 fL (36.4-46.3); Red Blood Count 4.45 M/uL (4.63-6.08)
[2022-07-28] MEDS: ACETAMINOPHEN 500 MG TAB PO SCH ×2 (06:29→14:28)
[2022-07-28 06:59] LABS: Calcium 8.9 mg/dl (8.5-10.1); Potassium 4.2 mmol/L (3.5-5.1)
[2022-07-28 07:05] LABS: Creatinine Clr Calc Pharmacy 71.8 ml/min; Est GFR (African American) 78.1 ml/min; Est GFR (Non-African American) 67.4 ml/min
--- NOTE | 2022-07-28 07:13 | Orthopedic Progress Note ---
Date of Service July 28, 2022 Assessment & Plan (1) History of total right knee replacement: Plan: POD #1 s/p right TKA pt/ot dvt proph with ELLI/SCD/ASA plan for d/c home with HHPT, will recheck after PT, mild foot drop improving Admission and Anticipated Discharge Date Admission Date: July 27, 2022 Subjective POD #1 s/p Right TKA Review of Systems Constitutional: no fever, no chills and no sweats Respiratory: no cough and no dyspnea Cardiovascular: no chest pain and no dyspnea Gastrointestinal: no abdominal pain, no nausea and no vomiting Physical Exam Physical Exam: Vital Signs Temp 36.5 C 07/28/22 02:48 Pulse 84 07/28/22 02:48 Resp 18 07/28/22 02:48 BP 133/76 07/28/22 02:48 Pulse Ox 94 07/28/22 02:48 O2 Del Method 07/28/22 02:48 O2 Flow Rate 2 07/27/22 21:12 Intake & Output 07/27/22 07/28/22 07/28/22 18:59 06:59 18:59 Intake Total 0 / 2040 Output Total 385 / 2815 2430 / 2815 Balance 1655 / -775 -2430 / -775 Weight 102.648 kg Intake: IV 200 / 200 Lactated Ringe r's 1,000 ml @ 15 0 / 0 mls/hr IV .Q24 H [facility] Rx#: [id number] Tranexamic Aci d / 0.7% NaCl 1, 200 / 200 000 mg In 100 ml @ 600 mls/hr IV ONE ONE Rx# :[id number] IV Perioperative 1600 / 1600 Oral 240 / 240 Output: Urine 300 / 850 550 / 850 Estimated Blood Loss 5 / 5 Other 1180 / 1180 Drain Output 80 / 780 700 / 780 Right Hemovac #1 80 / 780 700 / 780 Other: Weight Measureme nt Method Standing Scale Musculoskeletal: Right Leg: NVDI, calf SNT, negative odette sign. DP palpable, able to wiggle toes, he can dorsiflex at the ankle but weak compared to contralateral side, dressing clean dry and intact. Results & Data ([facility]) Vital Signs (Past 12 Hours) Vital Signs Temp Pulse Resp BP Pulse Ox O2 Del Method O2 Flow Rate 07/28/22 02:48 36.5 C 84 18 133/76 94 Room Air 07/27/22 21:12 Nasal Cannula 2 07/27/22 22:08 36.5 C 87 18 127/77 96 Nasal Cannula 07/27/22 19:42 36.7 C 90 18 112/65 92 Nasal Cannula 2 Laboratory Results Laboratory Results WBC 13.10 K/ul (4.8-10.8) H 07/28/22 05:22 RBC 4.45 M/uL (4.63-6.08) L 07/28/22 05:22 Hgb 12.3 g/dl (14.0-18.0) L 07/28/22 05:22 Hct 37.0 % (40.1-51.0) L 07/28/22 05:22 MCV 83.1 fL (80.0-100.0) 07/28/22 05:22 MCH 27.6 pg (25.0-34.0) 07/28/22 05:22 MCHC 33.2 g/dL (32.0-36.0) 07/28/22 05:22 RDW Std Deviation 39.5 fL (36.4-46.3) 07/28/22 05:22 RDW Coeff of Matilde 13.1 % (11.5-14.5) 07/28/22 05:22 Plt Count 198 K/uL (130-400) 07/28/22 05:22 MPV 10.6 fL (9.4-12.4) 07/28/22 05:22 Sodium 134 mmol/L (136-145) L 07/28/22 05:22 Potassium 4.2 mmol/L (3.5-5.1) 07/28/22 05:22 Chloride 100 mmol/L (98-107) 07/28/22 05:22 Carbon Dioxide 25 mmol/L (21-32) 07/28/22 05:22 Anion Gap 9 (3-11) 07/28/22 05:22 BUN 17 mg/dl (6-23) 07/28/22 05:22 Creatinine 1.06 mg/dl (0.6-1.4) 07/28/22 05:22 Est Cr Clr Drug Dosing 71.8 ml/min 07/28/22 05:22 Est GFR ( Amer) 78.1 ml/min 07/28/22 05:22 Est GFR (Non-Af Amer) 67.4 ml/min 07/28/22 05:22 BUN/Creatinine Ratio 16.0 (10-20) 07/28/22 05:22 Glucose 153 mg/dl (70-99(Fasting)) H 07/28/22 05:22 Calcium 8.9 mg/dl (8.5-10.1) 07/28/22 05:22 SARS-CoV-2, RNA, NAAT NEGATIVE (NEGATIVE) 07/27/22 Unknown Impressions Knee X-Ray 07/27/22 13:38 XR knee RT 1 or 2V routine CLINICAL HISTORY: Surgical Post Op TECHNIQUE: 2 views of the right knee were obtained. Comparison: None available at the time of this dictation. FINDINGS: Patient is status post total knee arthroplasty with expected postsurgical duong es including soft tissue swelling and subcutaneous emphysema. No periarticular lucency or hardware fracture is seen. IMPRESSION: Expected postoperative appearance status post placement of total knee arthroplasty. ACT 112: Negative or not required by law. Electronically signed by: Trey Chaves M.D. 07/27/2022 3:38 PM
[2022-07-28] MEDS ORDERED: MULTIVITAMIN TAB PO SCH (09:00)
[2022-07-28] MEDS ORDERED: PANTOprazole 40 MG TAB PO SCH (09:00)
[2022-07-28] MEDS ORDERED: lisinopril 40 MG TAB PO SCH (09:00)
[2022-07-28] MEDS: ASPIRIN 81 MG ECTAB PO SCH (10:32)
[2022-07-28] MEDS: DOCUSATE SODIUM 100 MG CAP PO SCH (10:33)
--- NOTE | 2022-07-29 17:08 | Discharge Summary ---
Date of Service July 29, 2022 Admission HPI Per Admitting Provider Marshall is a pleasant 77-year-old male who presents for preop evaluation prior to his right total knee replacement scheduled for 07/27/2022 at [facility]. He states he has been having pain in his knee for many years now which is gradually worsened and is now affecting his daily activities. He did have prior surgery on his knee approximately 30 or 40 years ago. He does take oral anti-inflammatories and Tylenol as needed for pain. He rates his current pain as a 7 out of 10. After discussing further options he like to proceed with a right total knee replacement Admission Exam Per Admitting Provider Physical Exam: HT: 5ft 11.5in WT: 102.4kg Constitutional: WD/WN, vitals as above no acute distress Respiratory: normal respiratory effort, lungs clear to auscultation no respiratory distress, no labored breathing and does not use accessory muscles Cardiovascular: RRR, no murmur, no edema Gastrointestinal (Abdomen): normal bowel sounds, soft, nontender, no hepatosplenomegaly Musculoskeletal: Knee: + knee abnormal to inspection (RIGHT KNEE: ), + effusion (+1 effusion), + surgical incision (well healed portals), + limited ROM of knee (ROM 0/3/110), + knee ROM with crepitation, + joint line tenderness (medial joint line) and + Yovany's sign positive; no deformity, no skin erythema, no ecchymosis, no valgus laxity, no varus laxity, anterior drawer test negative, Favio's sign negative and pivot shift test negative Principal Diagnosis Right Knee Djd Discharge Data Allergies Allergy/AdvReac Type Severity Reaction Status Date / Time azithromycin Allergy Mild Rash Verified 07/27/22 08:38 Consultations 07/22/22 10:53 Consult Hospitalist Routine Procedures Performed Operation Date: 07/27/22 10:45 Actual Procedures p Right Total Knee Arthroplasty(Right) - Danilo Martinez DO Ordered Studies 07/27/22 05:00 US - OR guided needle placemen Routine Hospital Course (1) Arthritis of right knee: Patient:MARSHALL MARTE Admit Date:07/27/22 MR#:[id number] Att Phy:Danilo Martinez,D.O. Acct ID:[id number] Elizabeth Phy:Wilberto KraftDO ([place]) Date:1945 [facility] Phy: Age:77 Location:3E Sex:M Room/Bed:[facility] cc: ~ *NOTICE TO RECEIVING CONSTITUTION PARTY/AGENCY This information is strictly Confidential and protected under [place] law. [place] law prohibits you from making any further disclosure of this information unless further disclosure is expressly permitted by the written consent of the person to whom it pertains or is authorized by law. A general authorization for the release of medical or other information is not sufficient for this purpose. Hospital accepts no responsibility if the information is made available to any other person, INCLUDING THE PATIENT. Date of Service July 28, 2022 Assessment & Plan (1) History of total right knee replacement: Plan: POD #1 s/p right TKA pt/ot dvt proph with ELLI/SCD/ASA plan for d/c home with HHPT, will recheck after PT, mild foot drop improving Admission and Anticipated Discharge Date Admission Date: July 27, 2022 Subjective POD #1 s/p Right TKA Review of Systems Constitutional: no fever, no chills and no sweats Respiratory: no cough and no dyspnea Cardiovascular: no chest pain and no dyspnea Gastrointestinal: no abdominal pain, no nausea and no vomiting Physical Exam Physical Exam: Vital Signs Temp 36.5 C 07/28/22 02:48 Pulse 84 07/28/22 02:48 Resp 18 07/28/22 02:48 BP 133/76 07/28/22 02:48 Pulse Ox 94 07/28/22 02:48 O2 Del Method 07/28/22 02:48 O2 Flow Rate 2 07/27/22 21:12 Intake & Output 07/27/22 07/28/22 07/28/22 18:59 06:59 18:59 Intake Total 2039 / 0 Output Total 385 / 2815 2430 / 2815 Balance 1655 / -775 -2430 / -775 Weight 102.648 kg Intake: IV 200 / 200 Lactated Ringe r's 1,000 ml @ 15 0 / 0 mls/hr IV .Q24 H RAFFI Rx#: [id number] Tranexamic Aci d / 0.7% NaCl 1, 200 / 200 000 mg In 100 ml @ 600 mls/hr IV ONE ONE Rx# :[id number] IV Perioperative 1600 / 1600 Oral 240 / 240 Output: Urine 300 / 850 550 / 850 Estimated Blood Loss 5 / 5 Other 1180 / 1180 Drain Output 80 / 780 700 / 780 Right Hemovac #1 80 / 780 700 / 780 Other: Weight Measureme nt Method Standing Scale Musculoskeletal: Right Leg: NVDI, calf SNT, negative odette sign. DP palpable, able to wiggle toes, he can dorsiflex at the ankle but weak compared to contralateral side, dressing clean dry and intact. Results & Data ([facility]) Vital Signs (Past 12 Hours) Vital Signs Temp Pulse Resp BP Pulse Ox O2 Del Method O2 Flow Rate 07/28/22 02:48 36.5 C 84 18 133/76 94 Room Air 07/27/22 21:12 Nasal Cannula 2 07/27/22 22:08 36.5 C 87 18 127/77 96 Nasal Cannula 07/27/22 19:42 36.7 C 90 18 112/65 92 Nasal Cannula 2 Laboratory Results Laboratory Results WBC 13.10 K/ul (4.8-10.8) H 07/28/22 05:22 RBC 4.45 M/uL (4.63-6.08) L 07/28/22 05:22 Hgb 12.3 g/dl (14.0-18.0) L 07/28/22 05:22 Hct 37.0 % (40.1-51.0) L 07/28/22 05:22 MCV 83.1 fL (80.0-100.0) 07/28/22 05:22 MCH 27.6 pg (25.0-34.0) 07/28/22 05:22 MCHC 33.2 g/dL (32.0-36.0) 07/28/22 05:22 RDW Std Deviation 39.5 fL (36.4-46.3) 07/28/22 05:22 RDW Coeff of Matilde 13.1 % (11.5-14.5) 07/28/22 05:22 Plt Count 198 K/uL (130-400) 07/28/22 05:22 MPV 10.6 fL (9.4-12.4) 07/28/22 05:22 Sodium 134 mmol/L (136-145) L 07/28/22 05:22 Potassium 4.2 mmol/L (3.5-5.1) 07/28/22 05:22 Chloride 100 mmol/L (98-107) 07/28/22 05:22 Carbon Dioxide 25 mmol/L (21-32) 07/28/22 05:22 Anion Gap 9 (3-11) 07/28/22 05:22 BUN 17 mg/dl (6-23) 07/28/22 05:22 Creatinine 1.06 mg/dl (0.6-1.4) 07/28/22 05:22 Est Cr Clr Drug Dosing 71.8 ml/min 07/28/22 05:22 Est GFR ( Amer) 78.1 ml/min 07/28/22 05:22 Est GFR (Non-Af Amer) 67.4 ml/min 07/28/22 05:22 BUN/Creatinine Ratio 16.0 (10-20) 07/28/22 05:22 Glucose 153 mg/dl (70-99(Fasting)) H 07/28/22 05:22 Calcium 8.9 mg/dl (8.5-10.1) 07/28/22 05:22 SARS-CoV-2, RNA, NAAT NEGATIVE (NEGATIVE) 07/27/22 Unknown Impressions Knee X-Ray 07/27/22 13:38 XR knee RT 1 or 2V routine CLINICAL HISTORY: Surgical Post Op TECHNIQUE: 2 views of the right knee were obtained. Comparison: None available at the time of this dictation. FINDINGS: Patient is status post total knee arthroplasty with expected postsurgical changes including soft tissue swelling and subcutaneous emphysema. No periarticular lucency or hardware fracture is seen. IMPRESSION: Expected postoperative appearance status post placement of total knee arthroplasty. ACT 112: Negative or not required by law. Electronically signed by: Trey Chaves M.D. 07/27/2022 3:38 PM Signed By: <Electronically signed by Benji Forte PA-C> 07/28/22 0713 <Electronically signed by Danilo Martinez DO> 07/28/22 0912 Created:07/28/22 0711 Total Time Total Time Spent Total Time Spent (In Minutes): 5 Discharge Plan Discharge Items Patient Disposition: Home - Home Health Services Reason For Visit: Tricompartment Osteoarthitis of Right Knee Discharge Diagnosis: Right knee osteoarthritis Activity: Per Instructions section Weightbearing Comment: as tolerated with walker Non-emergency contact: Surgeon Call non-emergency contact if: you have any medication questions, your pain is not controlled, your temperature is above 101.5, your wound has increased redness and your wound has increased drainage Follow-up/Referrals: Danilo Martinez, [Surgeon] - (Follow up with Dr. Martinez or his PA in 2 weeks from the day of your surgery for your first post operative visit. ) Wilberto Kraft DO [Primary Care Provider] - Diet: Regular Addtl Attending Provider Instructions: ACTIVITY RECOMMENDATIONS: SELF CARE INSTRUCTIONS AFTER TOTAL KNEE REPLACEMENT A. You may need to continue a physical therapy program after discharge from the hospital. There are several options available to you. Your doctor will assist you in selecting the best one for you. 1. An out-patient facility 2 to 3 times a week for therapy or home therapy. 2. Continue working on all exercises taught to you in the hospital. Your goals should be to increase bending of your knee to 90 degrees and beyond and to fully straighten your knee. B. You may progress at your own pace from walking with a walker or crutches to a cane; then to no assistive devices. C. Make walking a part of your daily routine. Be up as much as comfortable with rest periods throughout the day. Rest with leg elevation is very important. Use the ice wrap frequently for the first 3-4 weeks. D. There are no restrictions on activities. You may ride in a car, shop, participate in shaft mechanic and all social activities. E. Wear the long elastic stockings (ELLI hose) 20 hours a day for 2 weeks after surgery. They can be removed several times a day for laundering and for a bath. F. You may shower, no tub baths until cleared by your doctor. SPECIAL CARE INSTRUCTIONS: VERY IMPORTANT TO READ AND REVIEW A. There are a few signs you need to watch for after you are home. Call [facility] if you notice any of the followin. Increased severe knee pain. Some pain is expected especially when you exercise. 2. Increased swelling in your leg or knee; pain or swelling of the calf muscle in either lower leg. 3. Any fluid drainage from the incision. 4. Shortness of breath or chest pain. B. Please call [facility] at if you have any concerns or questions about your operation or recovery. The doctor or his nurse will return your call promptly. C. You must take antibiotics before dental work, bladder, bowel or other surgery. Your doctor will provide you with a permanent care to carry describing this precaution. IMPORTANT: * REMEMBER TO TAKE ASPIRIN, 81 MG, TWICE DAILY FOR 4 WEEKS UNLESS OTHERWISE DIRECTED. THIS IS YOUR BLOOD THINNER. * HIGH RISK PATIENTS MAY BE PRESCRIBED A STRONGER BLOOD THINNER. THIS WILL BE PROVIDED AT DISCHARGE. * CALL IF INCREASED PAIN, REDNESS, DRAINAGE OR FEVER GREATER THAT 101. * WEAR ELLI HOSE 20 HOURS PER DAY FOR 2 WEEKS. * JULIA Dressing - This is a large suction dressing covering your incision. This will help pull any excess drainage from the wound and allow your incision to heal properly. You may shower with this if you can keep the unit outside of the shower. If any bleeding or leakage is noted please call your doctor's office. This will remain on your incision for 7 days and then should be removed. This can be done yourself or by the home nursing staff if applicable. The entire unit is disposable once removed. Once removed, keep incision clean and dry. If redness or drainage is noted, please call your surgeon. . * After your Julia dressing is removed --> DERMABOND Prineo- This is a mesh tape dressing that is covered with glue. It should remain in place until the incision is properly healed, usually 10-14 days. This dressing is designed to naturally slough off. You may trim the excess mesh tape as it peels off. Incision may be briefly wet in a shower. Dry immediately by blotting with a clean, dry towel. Do not bath or swim until instructed by your doctor. Do not scratch, rub, or pick at the dressing. Do not apply any topical ointments or lotions until dressing is completely removed and/or instructed by your doctor. There may be a small piece of suture material at one end of your incision. Do not pull or trim this. If it is bothersome or catching on clothing, you may cover it with a band-aid. FOLLOW UP VISIT: If appointment is not already scheduled: Please call [facility] to make a follow-up appointment for 2 weeks after your surgery at . Pending Studies at Discharge: No Stand-Alone Forms: [facility], Smoking Cessation Medications and DC Order Prescriptions: New acetaminophen [Tylenol Extra Strength] 500 mg Tablet 1,000 mg PO Q8 21 Days Qty: 126 0RF aspirin 81 mg Tablet,Delayed Release (Dr/Ec) 81 mg PO BID 30 Days Qty: 60 0RF oxycodone 5 mg Tablet 5 - 10 mg PO Q6H PRN (Reason: pain) Qty: 30 0RF Rx Instructions: ongoing therapy, supervising dr erwin martinez. max 6 tabs in 24 hours docusate sodium 100 mg Capsule 100 mg PO BID 10 Days Qty: 20 0RF celecoxib [Celebrex] 200 mg capsule 200 mg PO BID 30 Days Qty: 60 0RF cefadroxil 500 mg capsule 500 mg PO BID 14 Days Qty: 28 0RF Continued atorvastatin 40 mg tablet 40 mg PO HS lisinopril 40 mg tablet 40 mg PO QAM esomeprazole magnesium [Nexium] 40 mg capsule,delayed release(DR/EC) 40 mg PO DAILY Discontinued naproxen sodium 220 mg tablet 440 mg PO QAM Krames/Other Patient Handouts: RICE Admission Data Admit Date/Time: 07/27/22 13:38 Attending Provider: Danilo Martienz Admit Provider: Danilo Martinez Primary Care Provider: Wilberto Kraft Other Providers: Rajeev Shine Jonathan M. ; Denise,Home Health Other Interventions: Discharge Summary Assessment (RN) Last Done: 07/28/22 15:30
== END 2022-07-28 16:09 | disposition home health service (06) ==
LOC: ASU 08:07 → PACUINP 08:07 → MERGE 08:25 → 3E 18:26
DX: K21.9 Gastro-esophageal reflux disease without esophagitis; M17.11 Unilateral primary osteoarthritis, right knee; M65.9 Synovitis and tenosynovitis, unspecified; E78.5 Hyperlipidemia, unspecified; Z86.16 Personal history of COVID-19; Z88.1 Allergy status to other antibiotic agents; Z79.899 Other long term (current) drug therapy; Z95.0 Presence of cardiac pacemaker; I10 Essential (primary) hypertension